=== PATIENT | male | born 1970 | race African-American/Black ===

== ENCOUNTER 2016-09-22 10:15 | Emergency (ER) | payer OTHER ==
[~2016-09-22] VITALS: Ht 182.9 cm; Wt 93.0 kg
[2016-09-22 10:21] VITALS: BP 129/76
--- NOTE | 2016-09-22 10:25 | NUR ---
Patient ambulated to bed 7. RN evaluating patient at bedside.
--- NOTE | 2016-09-22 10:28 | NUR ---
PT PRESENTS TO ER FOR EVALUATION OF LACERATION TO LEFT FOREARM. PT DENIES ANY MEDICAL HX. PT UNSURE OF LAST TETANUS SHOT.DENIES N/V/D; SKIN IS PINK/WARM/DRY; AAOX4 WITH EVEN AND STEADY GAIT; LUNGS CLEAR BL; HR EVEN AND REGULAR; PT DENIES ANY FEVER, CP, SOB, OR COUGH AT THIS TIME; DENIES ANY PAIN RT NOW PAIN SCALE OF 0/10 AT THIS TIME; PATIENT POSITIONED FOR COMFORT; HOB ELEVATED; BEDRAILS UP X2; BED DOWN.
--- NOTE | 2016-09-22 10:29 | NUR ---
ER M AT BEDSIDE
[2016-09-22] MEDS ORDERED: LIDOCAINE 1% 500 MG/50 ML VIAL INJ ONE (10:35)
[2016-09-22] MEDS ORDERED: HYDROcodone/APAP 5/325 MG 1 TAB TAB PO ONE (10:35)
[2016-09-22] MEDS ORDERED: LIDOCAINE 1% ED 50 ML ONE (10:38)
--- NOTE | 2016-09-22 10:46 | NUR ---
SUTURING DONE BY ER MD;PT TOLERATED WELL PROCEDURE;WILL CONTINUE TO MONITOR PT.
[2016-09-22] MEDS ORDERED: BACITRACIN OINT 500 UNITS/GM PKT TP ONE (11:33)
[2016-09-22 11:38] VITALS: BP 118/72
== END 2016-09-22 11:37 | disposition home or self-care (01) ==
LOC: MED 10:15
DX: S51.812A Laceration without foreign body of left forearm, initial encounter (principal); R03.0 Elevated blood-pressure reading, without diagnosis of hypertension; Z71.6 Tobacco abuse counseling; W25.XXXA Contact with sharp glass, initial encounter; Y93.89 Activity, other specified; Y92.69 Other specified industrial and construction area as the place of occurrence of the external cause; Y99.0 Civilian activity done for income or pay
CPT/HCPCS: 90471; 90715; 99283; J2001